=== PATIENT | male | born 1970 | race Caucasian/White ===

== ENCOUNTER 2020-03-06 13:09 | Inpatient (IN) | payer MEDICAID ==
[~2020-03-06] VITALS: Ht 185.4 cm; Wt 68.2 kg
[2020-03-06] MEDS ORDERED: ondansetron/PF 4mg/2ml inj IV ONE (13:25)
[2020-03-06] MEDS ORDERED: morphine 4 MG/ML inj SYRINge IV PRN (13:25)
[2020-03-06] MEDS ORDERED: normal saline 1000ML IV soln IVB ONE (13:25)
[2020-03-06] MEDS ORDERED: piperacillin/tazo 3.375gm/50ml 50 ML IV ONE (13:25)
[2020-03-06] MEDS ORDERED: fentaNYL/PF 50MCG/1 ML 2ML syringe IV ONE (13:35)
[2020-03-06 13:52] LABS: EOSINOPHILS % (AUTO) 0.6 % (0-6); HEMATOCRIT 42.5 % (42.0-52.0); HEMOGLOBIN 14.2 g/dl (14.0-17.9); LYMPHOCYTES # (AUTO) 1.2 X10'3 (1.1-4.8); LYMPHOCYTES % (AUTO) 29.7 % (21-51); MEAN CORPUSCULAR HEMOGLOBIN 32.2 PG (27.0-31.0); MEAN CORPUSCULAR HGB CONC 33.5 g/dL (33.0-36.5); MEAN CORPUSCULAR VOLUME 96.1 FL (78-98); MEAN PLATELET VOLUME 8.6 FL (7.4-10.4); MONOCYTES # (AUTO) 0.3 X10'3 (0-0.9); MONOCYTES % (AUTO) 8.1 % (2-12); NEUTROPHILS # (AUTO) 2.5 X10'3 (1.8-7.7); NEUTROPHILS % (AUTO) 60.6 % (42-75); PLATELET COUNT 216 X10'3 (140-440); RED BLOOD COUNT 4.42 X10'6 (4.70-6.10); RED CELL DISTRIBUTION WIDTH 14.4 % (11.5-14.5); WHITE BLOOD COUNT 4.2 X10'3 (4.5-11.0)
--- NOTE | 2020-03-06 13:59 | NUR ---
Nurse:nurse received from OSMANI Randolph. Katarina primary RN informed.
[2020-03-06 14:11] LABS: ALANINE AMINOTRANSFERASE 64 U/L (12-78); ALBUMIN 3.9 G/DL (3.4-5.0); ALBUMIN/GLOBULIN RATIO 1.2 (1.1-1.5); ALKALINE PHOSPHATASE 58 IU/L (46-116); ANION GAP 11 (8-16); ASPARTATE AMINO TRANSFERASE 44 U/L (10-37); BILIRUBIN,TOTAL 0.4 MG/DL (0.1-1.0); BLOOD UREA NITROGEN 7 MG/DL (7-18); BUN/CREATININE RATIO 8.1 (5.4-32.0); CALCIUM 8.1 MG/DL (8.5-10.1); CHLORIDE 106 MMOL/L (99-107); CREATININE 0.86 MG/DL (0.60-1.10); GLUCOSE 103 MG/DL (70-104); LIPASE 137 U/L (73-393); POTASSIUM 3.9 MMOL/L (3.5-5.1); SODIUM 144 MMOL/L (135-145); TOTAL CARBON DIOXIDE 27.2 MMOL/L (24-32); TOTAL PROTEIN 7.1 G/DL (6.4-8.2); eGFR > 90 ML/MIN
[2020-03-06] MEDS ORDERED: NO HOME MEDS (14:33)
--- NOTE | 2020-03-06 14:51 | NUR ---
SpO2 88-90% on RA. Pt placed on O2 @ 2 L NC.
[2020-03-06] MEDS: normal saline 1000ml 1,000 ML IV SCH (15:12)
[2020-03-06] MEDS ORDERED: ondansetron/PF 4mg/2ml inj IV PRN (15:15)
[2020-03-06] MEDS ORDERED: magnesium 4gm in 100ml NS 100 ML IV PRN (15:15)
[2020-03-06] MEDS ORDERED: magnesium hydroxide 30ml (MOM) UD suspension PO PRN (15:15)
[2020-03-06] MEDS ORDERED: acetaminophen 325mg tablet PO PRN ×2 (15:15)
[2020-03-06] MEDS ORDERED: magnesium 2GM in 50ml NS 50 ML IV PRN (15:15)
[2020-03-06] MEDS ORDERED: mag hydrox/Alum hydrox/simeth 30ml oral suspension PO PRN (15:15)
[2020-03-06] MEDS ORDERED: potassium CL 10mEq/100ml bag 100 ML IV PRN ×2 (15:15)
[2020-03-06] MEDS ORDERED: acetaminophen 650mg rectal suppository RC PRN (15:15)
[2020-03-06] MEDS ORDERED: metoclopramide 5 mg/ml inj IV PRN (15:15)
[2020-03-06] MEDS ORDERED: bisacodyl 10mg suppository rectal RC PRN (15:15)
[2020-03-06] MEDS ORDERED: potassium Cl 20 mEq SR tablet PO PRN ×2 (15:15)
[2020-03-06] MEDS ORDERED: magnesium Cl slow-release 64mg tablet PO PRN (15:15)
[2020-03-06] MEDS ORDERED: diphenhydrAMINE 25mg capsule PO PRN (15:15)
[2020-03-06] MEDS ORDERED: nicotine 21mg patch - 24 hr TD ONE (15:20)
[2020-03-06] MEDS: piperacillin/tazo 3.375gm/50ml 50 ML IV SCH ×2 (16:00→23:51)
--- NOTE | 2020-03-06 16:48 | NUR ---
Spoke with Dr. Tyson regarding no orders for pain medication for Pt.TORB 1 mg Dilaudid Q4H PRN pain.
[2020-03-06 17:44] LABS: CLARITY,URINE CLEAR (Clear); COLOR,URINE YELLOW (Yellow); GLUCOSE, URINE NEGATIVE (Neg); KETONES,URINE NEGATIVE (Neg); LEUKOCYTE ESTERASE ,URINE NEGATIVE (Neg); NITRITES, URINE NEGATIVE (Neg); OCCULT BLOOD,URINE NEGATIVE (Neg); PH,URINE 6.5 (4.8-8.0); PROTEIN,URINE NEGATIVE (Neg); UA COLLECTION TYPE CLN CATCH MIDSTREAM
[2020-03-06 18:00] VITALS: BP 138/73
--- NOTE | 2020-03-06 18:01 | NUR ---
Patient in room [facility]. I have received report from Katarina in ED and had the opportunity to ask questions and assume patient care. Pt might be going to surgery today, katarina was unclear about the plans.
--- NOTE | 2020-03-06 18:43 | NUR ---
Problems reprioritized. Patient report given, questions answered & plan of care reviewed with Prudence RN.
[2020-03-06] MEDS: HYDROmorphone 1 mg/ml syringe IV PRN ×2 (18:50→23:07)
--- NOTE | 2020-03-06 18:53 | NUR ---
PT WAS TUCKED IN, X-RAY, RUSSELL, LABS DONE. PT WILL BE WIPED AND OR PAPERS READY TO GO IN THE CHART. PT MIGHT GO TO SURGERY TODAY OR TOMORROW. ORDERS NOT CLEAR. PT IS UPSET, HE WANTS TO DRINK AND WANTS MORE PAIN MEDS. PT ANGRY BECAUSE SURGERY TIME IS UNCLEAR. PT PROMISED BAD REVIEWS. NOC NURSE IS AWARE OF PTS COMPLAINS.
--- NOTE | 2020-03-06 19:11 | NUR ---
Patient in room [facility] 354. I have received report from Agueda KEEN and had the opportunity to ask questions and assume patient care.
[2020-03-06] MEDS: K and/or MAG REPLACEMENT MC SCH (19:50)
[2020-03-06 21:19] VITALS: BP 149/92
[2020-03-06] MEDS ORDERED: BUPIVAcaine/PF 2.5 mg/ml (0.25%) 30ml vial ONE (21:46)
[2020-03-06] MEDS ORDERED: ceFAZolin 1000mg inj ONE (21:46)
[2020-03-06] MEDS ORDERED: fentaNYL/PF 50MCG/1 ML 2ML syringe ONE (22:10)
[2020-03-06] MEDS ORDERED: midazolam 2 mg/2 ml injection ONE (22:10)
[2020-03-06] MEDS: diatr meglu/diatrizoate 30ml oral sol.-(3 dose) bottle PO SCH (23:08)
[2020-03-06] MEDS: Melatonin 3mg tablet PO SCH (23:51)
[2020-03-07] VITALS: BP 144/87
[2020-03-07] MEDS: normal saline 1000ml 1,000 ML IV SCH ×3 (04:39→20:45)
[2020-03-07] MEDS: HYDROmorphone 1 mg/ml syringe IV PRN ×4 (04:39→17:39)
--- NOTE | 2020-03-07 06:30 | NUR ---
Problems reprioritized. Patient report given, questions answered & plan of care reviewed with NGOZI KEEN.
--- NOTE | 2020-03-07 06:46 | NUR ---
Patient in room [facility] 354. I have received report from OSMANI Pickard and had the opportunity to ask questions and assume patient care.
[2020-03-07 06:54] LABS: BASOPHILS % (AUTO) 0.5 % (0-1); EOSINOPHILS % (AUTO) 0.7 % (0-6); HEMATOCRIT 43.3 % (42.0-52.0); HEMOGLOBIN 14.6 g/dl (14.0-17.9); LYMPHOCYTES # (AUTO) 0.7 X10'3 (1.1-4.8); LYMPHOCYTES % (AUTO) 11.9 % (21-51); MEAN CORPUSCULAR HEMOGLOBIN 32.5 PG (27.0-31.0); MEAN CORPUSCULAR HGB CONC 33.6 g/dL (33.0-36.5); MEAN CORPUSCULAR VOLUME 96.5 FL (78-98); MONOCYTES # (AUTO) 0.4 X10'3 (0-0.9); MONOCYTES % (AUTO) 6.7 % (2-12); NEUTROPHILS # (AUTO) 4.6 X10'3 (1.8-7.7); NEUTROPHILS % (AUTO) 80.2 % (42-75); PLATELET COUNT 209 X10'3 (140-440); RED BLOOD COUNT 4.49 X10'6 (4.70-6.10); RED CELL DISTRIBUTION WIDTH 14.3 % (11.5-14.5); WHITE BLOOD COUNT 5.7 X10'3 (4.5-11.0)
[2020-03-07 07:13] LABS: ALANINE AMINOTRANSFERASE 58 U/L (12-78); ALBUMIN 3.7 G/DL (3.4-5.0); ALBUMIN/GLOBULIN RATIO 1.1 (1.1-1.5); ALKALINE PHOSPHATASE 64 IU/L (46-116); ANION GAP 6 (8-16); ASPARTATE AMINO TRANSFERASE 42 U/L (10-37); BLOOD UREA NITROGEN 6 MG/DL (7-18); BUN/CREATININE RATIO 6.3 (5.4-32.0); CALCIUM 8.6 MG/DL (8.5-10.1); CHLORIDE 106 MMOL/L (99-107); CHOL/HDL RATIO 3.4 (0.00-4.99); CHOLESTEROL 210 MG/DL (0-200); CREATININE 0.95 MG/DL (0.60-1.10); GLUCOSE 106 MG/DL (70-104); HDL CHOLESTEROL 62 MG/DL (35-60); LDL CHOLESTEROL 129 MG/DL (50-100); MAGNESIUM 1.9 MG/DL (1.5-2.4); POTASSIUM 4.1 MMOL/L (3.5-5.1); SODIUM 142 MMOL/L (135-145); TOTAL CARBON DIOXIDE 29.7 MMOL/L (24-32); TRIGLYCERIDES 93 MG/DL (20-135); eGFR 84 ML/MIN
[2020-03-07] MEDS: diatr meglu/diatrizoate 30ml oral sol.-(3 dose) bottle PO SCH ×2 (07:13→10:18)
[2020-03-07] MEDS: piperacillin/tazo 3.375gm/50ml 50 ML IV SCH ×2 (07:15→16:13)
[2020-03-07 08:00] VITALS: BP 130/86
[2020-03-07] MEDS: K and/or MAG REPLACEMENT MC SCH ×2 (08:00→20:00)
[2020-03-07] MEDS ORDERED: iohexol 300mg/ml 100ml inj. ONE (09:44)
--- NOTE | 2020-03-07 11:21 | NUR ---
Dr. Carroll aware of CT results. stated no appendicitis noted therefore no surgery is needed.
[2020-03-07 11:50] VITALS: BP 136/84
[2020-03-07] MEDS: pantoprazole 40mg Tablet.DR PO SCH (17:35)
[2020-03-07 18:00] VITALS: BP 143/77
--- NOTE | 2020-03-07 18:23 | NUR ---
Problems reprioritized. Patient report given, questions answered & plan of care reviewed with OSMANI Pickard. Pt tolerating regular diet, stated pain has been more tolerable, cont to request pain med q4h.
--- NOTE | 2020-03-07 18:56 | NUR ---
Patient in room [facility] 354. I have received report from NGOZI KEEN and had the opportunity to ask questions and assume patient care.
[2020-03-07] MEDS: Melatonin 3mg tablet PO SCH (20:44)
[2020-03-08] MEDS: piperacillin/tazo 3.375gm/50ml 50 ML IV SCH ×2 (00:36→09:08)
[2020-03-08] MEDS: HYDROmorphone 1 mg/ml syringe IV PRN ×2 (00:41→09:11)
[2020-03-08 00:57] VITALS: BP 120/70
[2020-03-08 05:13] LABS: BASOPHILS % (AUTO) 0.7 % (0-1); EOSINOPHILS # (AUTO) 0.1 X10'3 (0-0.9); EOSINOPHILS % (AUTO) 1.6 % (0-6); HEMATOCRIT 43.3 % (42.0-52.0); HEMOGLOBIN 14.4 g/dl (14.0-17.9); LYMPHOCYTES # (AUTO) 1.2 X10'3 (1.1-4.8); LYMPHOCYTES % (AUTO) 28.7 % (21-51); MEAN CORPUSCULAR HEMOGLOBIN 32.2 PG (27.0-31.0); MEAN CORPUSCULAR HGB CONC 33.3 g/dL (33.0-36.5); MEAN CORPUSCULAR VOLUME 96.7 FL (78-98); MEAN PLATELET VOLUME 9.4 FL (7.4-10.4); MONOCYTES # (AUTO) 0.4 X10'3 (0-0.9); MONOCYTES % (AUTO) 9.7 % (2-12); NEUTROPHILS # (AUTO) 2.5 X10'3 (1.8-7.7); NEUTROPHILS % (AUTO) 59.3 % (42-75); PLATELET COUNT 179 X10'3 (140-440); RED BLOOD COUNT 4.48 X10'6 (4.70-6.10); RED CELL DISTRIBUTION WIDTH 14.3 % (11.5-14.5); WHITE BLOOD COUNT 4.2 X10'3 (4.5-11.0)
[2020-03-08 06:01] LABS: ALANINE AMINOTRANSFERASE 54 U/L (12-78); ALBUMIN 3.5 G/DL (3.4-5.0); ALBUMIN/GLOBULIN RATIO 1.1 (1.1-1.5); ALKALINE PHOSPHATASE 56 IU/L (46-116); ANION GAP 8 (8-16); ASPARTATE AMINO TRANSFERASE 39 U/L (10-37); BLOOD UREA NITROGEN 11 MG/DL (7-18); BUN/CREATININE RATIO 12.6 (5.4-32.0); CALCIUM 9.2 MG/DL (8.5-10.1); CHLORIDE 106 MMOL/L (99-107); CREATININE 0.87 MG/DL (0.60-1.10); GLUCOSE 103 MG/DL (70-104); MAGNESIUM 2.2 MG/DL (1.5-2.4); PHOSPHORUS 4.1 MG/DL (2.3-4.5); SODIUM 143 MMOL/L (135-145); TOTAL CARBON DIOXIDE 29.2 MMOL/L (24-32); TOTAL PROTEIN 6.7 G/DL (6.4-8.2); eGFR > 90 ML/MIN
--- NOTE | 2020-03-08 06:19 | NUR ---
Problems reprioritized. Patient report given, questions answered & plan of care reviewed with Krystin KEEN.
[2020-03-08 07:00] VITALS: BP 139/86
[2020-03-08] MEDS: normal saline 1000ml 1,000 ML IV SCH (07:12)
[2020-03-08] MEDS: K and/or MAG REPLACEMENT MC SCH (08:00)
[2020-03-08] MEDS: pantoprazole 40mg Tablet.DR PO SCH (09:08)
[2020-03-08] MEDS ORDERED: PANT40TA4 PO (10:24)
[2020-03-08] MEDS ORDERED: AMOX-419 PO (10:24)
--- NOTE | 2020-03-08 10:35 | NUR ---
DISCHARGE ORDERS NOTED. PT STATES HE HAS NO TRANSPORT. CALLED CONTACT ON FILE AND PHONE HAS BUSY SIGNAL. NOTIFIED CM. STATES SHE WILL NOTIFY SS IN AM FOR BUS TICKET BUT THAT THERE IS NO BUS ON SUNDAYS. RUTH ETIENNE.
[2020-03-08 11:00] VITALS: BP 124/85
--- NOTE | 2020-03-08 11:09 | NUR ---
PAGER ID: [phone] MESSAGE: albaro fernández [id number] discharge noted. pt. states no transport today to [place]. cm state he cant leave until AM- on bus. pt. removed his IV. May we have order for no IV please and DC meds until AM? Krystin [phone]
--- NOTE | 2020-03-08 14:45 | NUR ---
Pt. discharge in a stable condition. Unable to obtain a ride home until AM to [place]. Hotel provided by hospital. Taxi called. No IV on discharge, no s/sx bleeding noted at old IV site. Reviewed discharge paperwork with pt. 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 Aware of what medications he has been prescribed and that he needs to follow up with PCP. Pt. has been educated to return to ER if any s/sx persist. Pt. left with all of his belongings. Has CM phone number if needed.
== END 2020-03-08 13:49 | disposition home or self-care (01) | DRG 249 ==
LOC: ER 13:11 → UNDOADMIN 15:12 → ED HOLD 15:12 → SUR 3N 17:45
PROVIDERS: ADMIT Family Medicine; ATTEND Family Medicine
PROC: BW211ZZ Computerized Tomography (CT Scan) of Abdomen and Pelvis using Low Osmolar Contrast (ICD-10-PCS; principal; 2020-03-07)
DX: K52.9 Noninfective gastroenteritis and colitis, unspecified (principal); F10.10 Alcohol abuse, uncomplicated; K21.9 Gastro-esophageal reflux disease without esophagitis; F17.210 Nicotine dependence, cigarettes, uncomplicated; Z88.5 Allergy status to narcotic agent; Z71.6 Tobacco abuse counseling; Z71.41 Alcohol abuse counseling and surveillance of alcoholic; I88.0 Nonspecific mesenteric lymphadenitis
CPT/HCPCS: 36415; 71045; 74177; 80053; 80061; 81003; 82948; 83036; 83605; 83690; 83735; 84100; 85025; 86885; 86900; 86901; 87040; 87081; 93005; 99285; G0378; J0690; J1170; J2250; J2405; J2543; J3010; J3490; J7030; Q9963; Q9967

== ENCOUNTER 2021-06-17 09:31 | Emergency (ER) | payer MEDICAID, OTHER ==
[~2021-06-17] VITALS: Ht 185.4 cm; Wt 52.0 kg
[~2021-06-17 09:31] MED LIST: PANT40TA54 PO
[2021-06-17 09:52] VITALS: BP 141/104
[2021-06-17] MEDS ORDERED: CHLO25CA10 PO (09:57)
[2021-06-17] MEDS ORDERED: chlordiazePOXIDE 25mg capsule PO ONE (10:00)
[2021-06-17] MEDS ORDERED: chlordiazePOXIDE 5mg capsule PO ONE (10:15)
== END 2021-06-17 10:19 | disposition home or self-care (01) ==
LOC: ER 09:31
DX: F10.10 Alcohol abuse, uncomplicated (principal); Z72.89 Other problems related to lifestyle; Z88.5 Allergy status to narcotic agent; Z79.899 Other long term (current) drug therapy; Y90.9 Presence of alcohol in blood, level not specified
CPT/HCPCS: 99283

== ENCOUNTER 2021-12-24 16:09 | Inpatient (IN) | payer MEDICAID ==
[~2021-12-24] VITALS: Ht 185.4 cm; Wt 73.0 kg
[~2021-12-24 16:09] MED LIST changes: +CHLO25CA10 PO
[2021-12-24] MEDS ORDERED: haloperidol 5mg tablet PO PRN (17:05)
[2021-12-24] MEDS ORDERED: haloperidol lactate 5mg/ml inj IM PRN (17:05)
[2021-12-24] MEDS ORDERED: normal saline 1000ML IV soln IVB ONE (17:05)
[2021-12-24 17:36] LABS: URINE AMPHETAMINE SCREEN NEGATIVE (Neg); URINE BARBITUATE SCREEN NEGATIVE (Neg); URINE BENZODIAZEPINES SCREEN NEGATIVE (Neg); URINE CANNABINOID SCREEN POSITIVE (Neg); URINE COCAINE SCREEN NEGATIVE (Neg); URINE METHADONE SCREEN NEGATIVE (Neg); URINE OPIATE SCREEN NEGATIVE (Neg); URINE PHENCYCLIDINE SCREEN NEGATIVE (Neg)
[2021-12-24] MEDS: folic acid 1mg tablet PO SCH (17:46)
[2021-12-24] MEDS: thiamine 100mg tablet PO SCH (17:46)
[2021-12-24] MEDS: LORazepam 1 MG tablet PO PRN ×2 (17:46→20:10)
[2021-12-24 17:48] LABS: BASOPHILS % (AUTO) 0.6 % (0-1); EOSINOPHILS % (AUTO) 0.4 % (0-6); HEMATOCRIT 44.2 % (42.0-52.0); HEMOGLOBIN 15.2 g/dl (14.0-17.9); LYMPHOCYTES # (AUTO) 2.3 X10'3 (1.1-4.8); LYMPHOCYTES % (AUTO) 30.1 % (21-51); MEAN CORPUSCULAR HEMOGLOBIN 31.3 PG (27.0-31.0); MEAN CORPUSCULAR HGB CONC 34.5 g/dL (33.0-36.5); MEAN CORPUSCULAR VOLUME 90.7 FL (78-98); MEAN PLATELET VOLUME 8.4 FL (7.4-10.4); MONOCYTES # (AUTO) 0.5 X10'3 (0-0.9); MONOCYTES % (AUTO) 6.3 % (2-12); NEUTROPHILS # (AUTO) 4.9 X10'3 (1.8-7.7); NEUTROPHILS % (AUTO) 62.6 % (42-75); PLATELET COUNT 248 X10'3 (140-440); RED BLOOD COUNT 4.87 X10'6 (4.70-6.10); RED CELL DISTRIBUTION WIDTH 13.1 % (11.5-14.5); WHITE BLOOD COUNT 7.8 X10'3 (4.5-11.0)
[2021-12-24 18:01] LABS: ALANINE AMINOTRANSFERASE 35 U/L (12-78); ALBUMIN 4.3 G/DL (3.4-5.0); ALBUMIN/GLOBULIN RATIO 1.1 (1.1-1.5); ALKALINE PHOSPHATASE 75 IU/L (46-116); ANION GAP 12 (8-16); ASPARTATE AMINO TRANSFERASE 31 U/L (10-37); BILIRUBIN,TOTAL 0.4 MG/DL (0.1-1.0); BLOOD UREA NITROGEN 10 MG/DL (7-18); BUN/CREATININE RATIO 10.4 (5.4-32.0); CALCIUM 9.1 MG/DL (8.5-10.1); CHLORIDE 106 MMOL/L (99-107); CREATININE 0.96 MG/DL (0.60-1.10); GLUCOSE 94 MG/DL (70-104); POTASSIUM 3.7 MMOL/L (3.5-5.1); SODIUM 144 MMOL/L (135-145); TOTAL CARBON DIOXIDE 26.2 MMOL/L (24-32); TOTAL PROTEIN 8.1 G/DL (6.4-8.2); eGFR 83 ML/MIN
--- NOTE | 2021-12-24 18:06 | NUR ---
[facility] [phone] called per patient request to let them know he is here detoxing from ETOH. Addendum: 12/24/21 at 1808 by PELON Incorrect author, note written by Tang Harman RN
[2021-12-24 18:10] LABS: ETHANOL 0.116 GM/DL (0.0-0.010)
--- NOTE | 2021-12-24 20:27 | NUR ---
Received pt from main ER back to ER overflow. Pt calm and cooperative.
--- NOTE | 2021-12-24 21:00 | NUR ---
Pt drank some fluid and quickly fell asleep.
--- NOTE | 2021-12-24 23:00 | NUR ---
Pt remains asleep in no apparent distress.
--- NOTE | 2021-12-25 01:00 | NUR ---
Pt remains calmly asleep in no distress.
--- NOTE | 2021-12-25 03:00 | NUR ---
Pt remains asleep in no apparent distress.
--- NOTE | 2021-12-25 05:00 | NUR ---
Pt remains sleeping without signs of distress.
--- NOTE | 2021-12-25 06:44 | NUR ---
pt sleeping quietly at this time.
[2021-12-25] MEDS ORDERED: multivitamins, therapeutics tablet PO SCH (08:00)
[2021-12-25] MEDS: thiamine 100mg tablet PO SCH (08:32)
[2021-12-25] MEDS: folic acid 1mg tablet PO SCH (08:32)
--- NOTE | 2021-12-25 08:50 | NUR ---
JEFF FROM [facility] AT BEDSIDE EVALUATING PT.
--- NOTE | 2021-12-25 09:42 | NUR ---
PT WILL BE PLACED ON A 5150 PER JEFF
--- NOTE | 2021-12-25 10:59 | NUR ---
[facility] AND GAVE [facility] REPORT. SHE ALSO SPOKE WITH THE PATIENT REGARDING HIS ALCOHOL INTAKE.
[2021-12-25 14:46] VITALS: BP 136/81
[2021-12-25] MEDS ORDERED: magnesium hydroxide 30ml (MOM) UD suspension PO PRN (15:05)
[2021-12-25] MEDS ORDERED: mag hydrox/Alum hydrox/simeth 30ml oral suspension PO PRN (15:05)
[2021-12-25] MEDS ORDERED: acetaminophen 325mg tablet PO PRN ×2 (15:05)
[2021-12-25] MEDS ORDERED: loperamide 2mg capsule PO PRN (15:05)
[2021-12-25] MEDS: nicotine 21mg patch - 24 hr TD SCH (15:05)
[2021-12-25] MEDS ORDERED: CELE100C98 PO (15:13)
--- NOTE | 2021-12-25 15:29 | NUR ---
Admission note: Pt admitted today to [facility] for Behavioral health on a 5150 for DTS. Pt states he is depressed and hopeless. Pt expresses that he does not trust himself to leave the hospital and has plan to walk in front of a logging truck in [place]. Pt ETOH level .116. Pt on CIWA precautions. Pt has history of Anxiety and PTSD. Addendum: 12/25/21 at 1706 by Shae Samayoa RN Pt. scores as a high risk on the [place] Suicide Risk Assessment, but is able to contract for safety while on the unit. This was endorsed to Dr. Kerns who ordered Q 15min safety checks. Pt. scored a 6 on the CIWA assessment, and this was also endorsed to Dr. Kerns who ordered Ativan 1mg Q 6hr, PRN. Pt. reports some nausea, a headache, anxiety, and exhibits mild tremors which can be felt in his bilateral upper extremities. PRN Ativan was administered along with Tylenol, and pt. is sleeping at this time. Will continue to monitor.
[2021-12-25] MEDS ORDERED: LORazepam 1 MG tablet PO PRN (15:30)
[2021-12-25 19:00] VITALS: BP 150/82
--- NOTE | 2021-12-26 04:36 | NUR ---
Nursing Progress Note: Legal hold: 5150 Client on involuntary status for DTS Report received from nurse with use of ANH Figueroa RN Why are they here: Pt admitted today to [facility] for Behavioral health on a 5150 for DTS. Pt states he is depressed and hopeless. Pt expresses that he does not trust himself to leave the hospital and has plan to walk in front of a logging truck in [place]. Pt ETOH level .116. Pt on CIWA precautions. Pt has history of Anxiety and PTSD. Assessment What has happened this shift: Received pt. lying in bed at shift change. Pt presented as calm and cooperative and had no needs at this time. Pt. continues to endorse S/I, however he contracts for safety and says he is feeling a little better physically. CIWA: 1929: , 0430: 0 S/I, H/I: + S.I. A/V/HINKLE: denies Sleep: ADL's: Pt. requires direction and encouragement Group attendance: No Were meds taken: n/a Any med S/E: None Mental Status Exam Appearance: pt in bed all shift Eye contact: Poor Behavior: Cooperative, fatigued, anxious, guarded, and isolative Speech: Soft and mumbled, disorganized and difficult to understand at times Mood: Anxious and guarded Affect: Constricted Thought process: Linear with episodes of confusion and disorganization Thought Content: anxiety and S.I. Cognition: A&O X4 Insight: Poor Judgment: Poor Interventions PRN's used: Therapeutic interventions: Maintained a safe and supportive environment, ensured contract for safety, provided clear and simple instructions, attempted to orient to reality, monitored for alcohol withdrawal s/s using CIWA and encouraged fluid intake, notified MD regarding any change in condition, provided redirection as needed, maintained fall precautions, and maintained Q 15min safety checks. Restraints/seclusion/emergency medication: N/A Justification of Continued Inpatient Treatment: Per PRANAY Rudd, pt. continues to require a safe and supportive environment while experiencing significant alcohol withdrawal. Medications will be adjusted after withdrawal s/s have subsided.
[2021-12-26 08:00] VITALS: BP 130/81
[2021-12-26] MEDS ORDERED: celeCOXIB 100mg capsule PO SCH (08:00)
[2021-12-26] MEDS: folic acid 1mg tablet PO SCH (08:10)
[2021-12-26] MEDS: multivitamins, therapeutics tablet PO SCH (08:10)
[2021-12-26] MEDS: thiamine 100mg tablet PO SCH (08:11)
[2021-12-26] MEDS: celeCOXIB 100mg capsule PO SCH (08:11)
[2021-12-26] MEDS: nicotine 21mg patch - 24 hr TD SCH (08:14)
[2021-12-26 08:58] VITALS: BP 130/81
[2021-12-26] MEDS: NICOTINE POLACRILEX 2 MG LOZENGE BC PRN (09:42)
[2021-12-26] MEDS ORDERED: hydrOXYzine 25 MG tablet PO PRN (09:45)
[2021-12-26] MEDS ORDERED: LORazepam 1 MG tablet PO PRN (09:45)
[2021-12-26 11:00] LABS: HEMOGLOBIN A1C 5.4 % (4.5-6.2)
[2021-12-26 11:06] LABS: CHOL/HDL RATIO 3.8 (0.00-4.99); CHOLESTEROL 189 MG/DL (0-200); HDL CHOLESTEROL 50 MG/DL (35-60); LDL CHOLESTEROL 124 MG/DL (50-100); TRIGLYCERIDES 159 MG/DL (20-135)
[2021-12-26] MEDS ORDERED: hydrOXYzine 25 MG tablet PO ONE (11:30)
--- NOTE | 2021-12-26 16:21 | NUR ---
Nursing Progress Note: Legal hold: 5150 Client on involuntary status for DTS Report received from nurse with use of SBAR: Vandana Martinez RN Why are they here: Pt admitted today to [facility] for Behavioral health on a 5150 for DTS. Pt states he is depressed and hopeless. Pt expresses that he does not trust himself to leave the hospital and has plan to walk in front of a logging truck in [place]. Pt ETOH level .116. Pt on CIWA precautions. Pt has history of Anxiety and PTSD. Assessment What has happened this shift: Received pt. sleeping in bed at the beginning of the shift, he was awoken for breakfast which he refused. Pt. was again awoken later for AM medications, he presented as irritable stating, "Don't tell me you're here to take my vital signs again?!" However, pt. was cooperative with medications and later apologized reporting he usually wakes up in a bad mood. CIWA Assessment was completed, pt. continues to report some anxiety, a headache, and exhibits mild bilateral tremors in his upper extremities, PRN Ativan was administered with effectiveness. 1:1 was completed at bedside, pt. currently denies any S/I, stating, "I think it was related to the depression and drinking." He reports he does not want to return to the rehabilitation program he was previously attending, but hopes to return to [place]. 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 could not articulate these. Pt. isolated in his room throughout much of the day napping intermittently. He perseverates on his desire to discharge and reports he is not used to being around this many people. S/I, H/I: Denies A/VH: Denies, does not appear to be internally preoccupied Sleep: Sleep hours are 8.25, and pt. naps throughout much of the shift ADL's: Requires some encouragement Group attendance: N/A Were meds taken: Yes Any med S/E None Mental Status Exam Appearance: Somewhat disheveled r/t laying in bed Eye contact: Moderate Behavior: Cooperative, fatigued, anxious, slightly irritable, and guarded Speech: WNL, guarded Mood: Guarded and irritable at times Affect: Constricted Thought process: Linear with poverty of thought Thought Content: Perseveration on desire to discharge Cognition: A&O X4 Insight: Poor Judgment: Poor Interventions PRN's used: Ativan Therapeutic interventions: Maintained a safe and supportive environment, ensured contract for safety, provided clear and simple instructions, provided active listening and positive encouragement, maintained CIWA assessments, and maintained Q 15min safety checks. Restraints/seclusion/emergency medication: N/A Justification of Continued Inpatient Treatment: Pt. requires interruption of current crisis and a safe and supportive environment.
[2021-12-26 19:39] VITALS: BP 129/79
[2021-12-26] MEDS: traZODone 50mg tablet PO SCH (20:02)
--- NOTE | 2021-12-27 00:40 | NUR ---
Nursing Progress Note: Legal hold: 5150 Client on involuntary status for DTS Report received from OSMANI Figueroa with use of SBAR: Why are they here: Pt admitted today to [facility] for Behavioral health on a 5150 for DTS. Pt states he is depressed and hopeless. Pt expresses that he does not trust himself to leave the hospital and has plan to walk in front of a logging truck in [place]. Pt ETOH level .116. Pt on CIWA precautions. Pt has history of Anxiety and PTSD. Assessment What has happened this shift: The patient was sleeping at shift change. He woke up for snack time, and came out of his room. Patient shows no signs of on-going withdrawal symptoms, and denies same. Patient also reports that he is not feeling depressed, "when I drink, I get depressed...but now I'm not drinking and depression is gone. Patient wants to DC to [place], but does not state why. After snack, patient accepted his only scheduled medication: Trazodone. He was soon asleep again, and has not requested any PRN's tonight. S/I, H/I: Denies A/VH: Denies Sleep: See sleep assessment ADL's: Requires some encouragement Group attendance: N/A Were meds taken: Yes Any med S/E None reported or observed Mental Status Exam Appearance: Somewhat disheveled r/t laying in bed Eye contact: Moderate Behavior: Cooperative, fatigued, anxious, and guarded Speech: WNL, guarded Mood: Guarded and irritable at times Affect: Constricted Thought process: Linear with poverty of thought Thought Content: Perseveration on desire to discharge Cognition: A&O X4 Insight: Poor Judgment: Poor Interventions PRN's used: Therapeutic interventions: Maintained a safe and supportive environment, ensured contract for safety, provided clear and simple instructions, provided active listening and positive encouragement, maintained CIWA assessments, and maintained Q 15min safety checks. Restraints/seclusion/emergency medication: N/A Justification of Continued Inpatient Treatment: Pt. requires interruption of current crisis and a safe and supportive environment.
[2021-12-27 07:21] VITALS: BP 112/69
[2021-12-27] MEDS: folic acid 1mg tablet PO SCH (08:00)
[2021-12-27] MEDS: multivitamins, therapeutics tablet PO SCH (08:00)
[2021-12-27] MEDS: celeCOXIB 100mg capsule PO SCH (08:00)
[2021-12-27] MEDS: thiamine 100mg tablet PO SCH (08:00)
[2021-12-27] MEDS: nicotine 21mg patch - 24 hr TD SCH (08:00)
[2021-12-27] MEDS: NICOTINE POLACRILEX 2 MG LOZENGE BC PRN (13:10)
--- NOTE | 2021-12-27 13:36 | NUR ---
Pt requested to have his meds and belongings @ [facility] brought to the hospital. Clinician contacted [facility] [phone] and left vm for Men's health program specialist to rt clinician's t/c to coordinate drop off of pt's meds, and personal belongings. Yomaira Chaidez LCSW Addendum: 12/27/21 at 1337 by Yomaira Chaidez SS Amended: Links added.
--- NOTE | 2021-12-27 14:42 | NUR ---
CM-Linkages Presenting Issues: Pt's 5150 expires tomorrow, pt wants to rt to [place] and work w/[employer] . However pt does not have a d/c destination and he does not know if he has $ for a motel room but wants to rt there for a job. Interventions: Clinician had t/c w/Zeny dcp @ [employer] [facility] [phone], per t/c [employer] In can pick pt up and bring him directly to to establish outpt services but he will be homeless. Zeny will put in a Rapid Housing referral for pt but there's a waitlist. Zeny request for notes. Clinician faxed Admission eval, meds & nursing notes. Plan: Clinician will engage pt in fine tuning his dcp. JÚNIOR RobinsW Addendum: 12/27/21 at 1448 by Yomaira Chaidez SS Amended: Links added.
--- NOTE | 2021-12-27 15:06 | NUR ---
Assessment met w/pt and engaged him in completing psychosocial assessment. Pt signed MYRNA & #9. MSE: TP-Linear TC- Denies SI/HI/AH/VH/TH; no delusional statements made Mood- irritable Affect- mood congruent Speech-wnl bxs- slight resistant but once rapport was established pt was more cooperative; high distrust of others especially service providers Insight- fair-guarded judgement- guarded due to poor impulse management pre dcp- pt wants to rt to [place]. Needs personal belongings which include meds from [facility] brought to hospital. Plan: Clinician will continue to engage pt in dcp activities. Yomaira Chaidez LCSW Addendum: 12/27/21 at 1511 by Yomaira Chaidez SS Amended: Links added.
--- NOTE | 2021-12-27 15:17 | NUR ---
Nursing Progress Note: Legal hold: 5150 Client on involuntary status for DTS Report received from nurse with use of SBAR: OSMANI Mackey Why are they here: Pt admitted today to [facility] [facility] for Behavioral health on a 5150 for DTS. Pt states he is depressed and hopeless. Pt expresses that he does not trust himself to leave the hospital and has plan to walk in front of a logging truck in [place]. Pt ETOH level .116. Pt on CIWA precautions. Pt has history of Anxiety and PTSD. Assessment What has happened this shift: Received pt. sleeping in bed at the beginning of the shift, he was awoken for breakfast which he refused. Pt presented as irritable stating, "For the third time, I don't want breakfast" Pt. was again awoken later for AM medications, However, pt. was cooperative with medications. CIWA Assessment was completed, and pt v/s are stable and pt has no complaints and is scoring a zero at 0830 and 1230. Pt. isolated in his room throughout much of the day napping intermittently. Pt states he did not sleep well last night. S/I, H/I: Denies A/VH: Denies, does not appear to be internally preoccupied Sleep: pt. naps throughout much of the shift ADL's: Requires some encouragement Group attendance: N/A Were meds taken: Yes Any med S/E None Mental Status Exam Appearance: Somewhat disheveled r/t laying in bed Eye contact: Moderate Behavior: Cooperative, fatigued, anxious, slightly irritable, and guarded Speech: WNL, guarded Mood: Guarded and irritable at times Affect: Constricted Thought process: Linear with poverty of thought Thought Content: Perseveration on desire to discharge Cognition: A&O X4 Insight: Poor Judgment: Poor Interventions PRN's used: nicotine lozenge Therapeutic interventions: Maintained a safe and supportive environment, ensured contract for safety, provided clear and simple instructions, provided active listening and positive encouragement, maintained CIWA assessments, and maintained Q 15min safety checks. Restraints/seclusion/emergency medication: N/A Justification of Continued Inpatient Treatment: Pt. requires interruption of current crisis and a safe and supportive environment.
[2021-12-27 19:50] VITALS: BP 116/75
[2021-12-27] MEDS: traZODone 50mg tablet PO SCH (20:09)
--- NOTE | 2021-12-28 00:20 | NUR ---
Nursing Progress Note: Legal hold: 5150 Client on involuntary status for DTS Report received from OSMANI Figueroa with use of SBAR: Why are they here: Pt admitted today to [facility] for Behavioral health on a 5150 for DTS. Pt states he is depressed and hopeless. Pt expresses that he does not trust himself to leave the hospital and has plan to walk in front of a logging truck in [place]. Pt ETOH level .116. Pt on CIWA precautions. Pt has history of Anxiety and PTSD. Assessment What has happened this shift: Patient seen at bedside for 1:1. He is speaking clearly and thinking clearly. Patient is in a pretty good mood tonight. He knows his hold is up, and doesn't believe it will be extended. at least he hopes not. Patient wants to DC to [place], where he believes he can work. He's homeless at this point and needs help with that. Patient denies all mental health symptoms, and none were observed. He spent the evening in the community room watching tv with his peers. He is compliant with medications, and requested a repeat of Trazodone to help him sleep. CIWA discontinued per Yuriy PIRES. Patient has been showing no withdrawal symptoms today. S/I, H/I: Denies A/VH: Denies Sleep: See sleep assessment ADL's: Requires some encouragement Group attendance: N/A Were meds taken: Yes Any med S/E None reported or observed Mental Status Exam Appearance: Somewhat disheveled r/t laying in bed Eye contact: Moderate Behavior: Cooperative, and guarded Speech: WNL, guarded Mood: "Fine" Affect: Full range Thought process: Linear with poverty of thought Thought Content: Perseveration on desire to discharge Cognition: A&O X4 Insight: Poor Judgment: Poor Interventions PRN's used: Trazodone Therapeutic interventions: Maintained a safe and supportive environment, ensured contract for safety, provided clear and simple instructions, provided active listening and positive encouragement, maintained CIWA assessments, and maintained Q 15min safety checks. Restraints/seclusion/emergency medication: N/A Justification of Continued Inpatient Treatment: Pt. requires interruption of current crisis and a safe and supportive environment.
[2021-12-28] MEDS: multivitamins, therapeutics tablet PO SCH (08:17)
[2021-12-28] MEDS: folic acid 1mg tablet PO SCH (08:17)
[2021-12-28] MEDS: nicotine 21mg patch - 24 hr TD SCH (08:17)
[2021-12-28] MEDS: celeCOXIB 100mg capsule PO SCH (08:17)
[2021-12-28] MEDS: thiamine 100mg tablet PO SCH (08:17)
[2021-12-28 08:25] VITALS: BP 102/71
--- NOTE | 2021-12-28 11:39 | NUR ---
Nursing Progress Note: Legal hold: 5150 Client on involuntary status for DTS Report received from nurse with use of SBAR: Lakshmi RN Why are they here: Pt admitted today to [facility] for Behavioral health on a 5150 for DTS. Pt states he is depressed and hopeless. Pt expresses that he does not trust himself to leave the hospital and has plan to walk in front of a logging truck in [place]. Pt ETOH level .116. Pt on CIWA precautions. Pt has history of Anxiety and PTSD. Assessment What has happened this shift: Received pt. sleeping in bed at the beginning of the shift, he was awoken to attend breakfast in the Group Room and afterwards retreated back to bed as is his routine. 1:1 was completed at bedside, pt. continues to present with a blunted affect and is guarded with conversation. When questioned regarding S/I, pt. stated, "No, that's long gone." He reports he is hoping to return to [place] today, and wants to stay with a friend. When questioned regarding any cravings to use alcohol, pt. denied these. He continues to isolate in his room napping intermittently, and is not observed to be participating on the unit or interacting with others. S/I, H/I: Denies A/VH: Denies, does not appear to be internally preoccupied Sleep: Sleep hours are 8.25, and pt. naps throughout much of the shift ADL's: Requires some encouragement Group attendance: No Were meds taken: Yes Any med S/E None Mental Status Exam Appearance: Somewhat disheveled r/t laying in bed Eye contact: Moderate Behavior: Cooperative, fatigued, guarded, and withdrawn Speech: WNL, guarded Mood: Guarded Affect: Blunted Thought process: Linear with poverty of thought Thought Content: Perseveration on desire to discharge Cognition: A&O X4 Insight: Poor Judgment: Fair Interventions PRN's used:None Therapeutic interventions: Maintained a safe and supportive environment, ensured contract for safety, provided clear and simple instructions, provided active listening and positive encouragement, encouraged participation on the unit, and maintained Q 15min safety checks. Restraints/seclusion/emergency medication: N/A Justification of Continued Inpatient Treatment: Pt. Dr. Wright, pt. continues to require medication adjustments and a safe and supportive environment. He would be at high risk for relapse if discharged.
--- NOTE | 2021-12-28 11:57 | NUR ---
Initial: Pt admitted w/ suicidal ideations and alcohol dependence per EMR. Currently on Regular diet w/ mostly 100% intake of meals and some snacks meeting needs. LBM 12/27 w/ PRN bowel care available. No nutrition intervention implemented at this time, will continue to monitor. Recs: 1. Continue Regular diet as tolerated 2. Bowel care per rx 3. Routine folic acid, thiamine, MVI for EtOH hx 4. Weekly wts Addendum: 12/28/21 at [address] Amended: Links added.
[2021-12-28] MEDS ORDERED: ESCITALOPRAM OXALATE 5 MG TABLET PO SCH (12:00)
[2021-12-28] MEDS ORDERED: MULT-25 PO (13:04)
[2021-12-28] MEDS ORDERED: thiamine tablet PO (13:04)
[2021-12-28] MEDS ORDERED: NICO-687 TD (13:04)
[2021-12-28] MEDS ORDERED: FOLI1TAB27 PO (13:04)
[2021-12-28] MEDS ORDERED: TRAZ-251 PO (13:04)
[2021-12-29] MEDS ORDERED: ESCITALOPRAM OXALATE 5 MG TABLET PO SCH (08:00)
== END 2021-12-28 14:00 | disposition home or self-care (01) | DRG 751 ==
LOC: ER 16:11 → ED HOLD 12-25 12:45 → ADULT MH 12-25 14:42
PROVIDERS: ADMIT Psychiatry & Neurology Psychiatry; ATTEND Psychiatry & Neurology Psychiatry
DX: F33.9 Major depressive disorder, recurrent, unspecified (principal); R45.851 Suicidal ideations; F10.20 Alcohol dependence, uncomplicated; Z20.822 Contact with and (suspected) exposure to COVID-19; F12.90 Cannabis use, unspecified, uncomplicated; Y90.5 Blood alcohol level of 100-119 mg/100 ml; F41.1 Generalized anxiety disorder; F17.210 Nicotine dependence, cigarettes, uncomplicated; F43.12 Post-traumatic stress disorder, chronic; Z59.00 Homelessness unspecified; Z88.5 Allergy status to narcotic agent; Z79.899 Other long term (current) drug therapy; Z71.6 Tobacco abuse counseling
CPT/HCPCS: 36415; 80053; 80061; 80305; 80320; 83036; 84443; 85025; 87081; 87635; 99285; C9803; J7030; Q0177